=== PATIENT | female | born 1975 | race African-American/Black ===

== ENCOUNTER 2017-09-15 03:40 | Emergency (ER) | payer MEDICAID ==
[~2017-09-15] VITALS: Ht 172.7 cm; Wt 150.0 kg
[2017-09-15] MEDS ORDERED: SODIUM CHLORIDE 0.9% 1,000 ML IV ONE (06:48)
[2017-09-15] MEDS ORDERED: KETOROLAC 30MG/ML VIAL IV STA (06:48)
[2017-09-15 07:15] LABS: HEMATOCRIT. 24.3 % (36.0-48.0); HEMOGLOBIN. 7.4 g/dL (12.0-16.0); MEAN CORPUSCULAR HEMOGLOBIN 18.3 pg (28.0-32.0); MEAN CORPUSCULAR VOLUME 60.4 fL (81.0-99.0); MEAN PLATELET VOLUME 8.4 fl (7.4-10.4); PLATELET 250 x1000/uL (130-400); RED BLOOD CELL COUNT 4.03 mill/uL (4.2-5.4); RED CELL DISTRIBUTION WIDTH 19.6 % (11.6-14.6)
[2017-09-15] MEDS ORDERED: ONDANSETRON HCL 4MG/2ML VIAL IV ONE (07:15)
[2017-09-15 07:22] LABS: PROTHROMBIN TIME 10.3 sec (9.4-11.6)
[2017-09-15 07:27] LABS: CARBON DIOXIDE 23 mEq/L (21-32); CHLORIDE 110 mEq/L (98-107)
[2017-09-15 07:54] LABS: GLUCOSE URINE NEGATIVE (NEGATIVE); KETONES URINE NEGATIVE (NEGATIVE); LEUKOCYTE ESTERASE URINE TRACE (NEGATIVE); NITRITE URINE NEGATIVE (NEGATIVE); OCCULT BLOOD URINE 1+ (NEGATIVE); PROTEIN URINE NEGATIVE (NEGATIVE); SPECIFIC GRAVITY URINE 1.023 (1.005-1.030); UROBILINOGEN URINE 0.2 E.U./dL (0.2-1.0)
[2017-09-15 07:55] LABS: CLARITY URINE CLEAR (CLEAR); COLOR URINE YELLOW (YELLOW)
[2017-09-15 08:19] LABS: PLATELET ESTIMATE NORMAL
[2017-09-15 08:21] VITALS: BP 119/68
[2017-09-15] MEDS ORDERED: MENTHOL/LANOLIN/CALAMINE/ZN OX OINT 71GM TOP STA ×2 (08:53→09:06)
== END 2017-09-15 09:48 | disposition home or self-care (01) ==
LOC: ER 03:40
DX: K43.9 Ventral hernia without obstruction or gangrene (principal); D50.9 Iron deficiency anemia, unspecified; R21 Rash and other nonspecific skin eruption; Z90.81 Acquired absence of spleen
CPT/HCPCS: 36415; 74176; 80053; 81001; 83690; 85025; 85610; 96361; 96374; 96375; 99285; J1885; J2405; J7030; Z7610

== ENCOUNTER 2018-02-16 13:58 | Observation (INO) | payer MEDICAID ==
[~2018-02-16] VITALS: Ht 160 cm; Wt 99.8 kg
== END 2018-02-16 15:10 | disposition home or self-care (01) ==
LOC: L&D 13:58
PROVIDERS: ADMIT Obstetrics & Gynecology; ATTEND Obstetrics & Gynecology
DX: O62.9 Abnormality of forces of labor, unspecified (principal); Z3A.37 37 weeks gestation of pregnancy
CPT/HCPCS: 76856; G0378

== ENCOUNTER 2018-02-16 15:14 | Emergency (ER) | payer MEDICAID ==
[~2018-02-16] VITALS: Ht 160 cm; Wt 100.0 kg
[2018-02-16 16:36] LABS: BASOPHILS % 0.6 % (0.0-2.0); EOSINOPHILS % 0.5 % (0.0-5.0); HEMATOCRIT. 26.9 % (36.0-48.0); HEMOGLOBIN. 8.2 g/dL (12.0-16.0); LYMPHOCYTES % 23.3 % (20.0-50.0); MEAN CORPUSCULAR HEMOGLOBIN 18.2 pg (28.0-32.0); MEAN CORPUSCULAR VOLUME 59.8 fL (81.0-99.0); MEAN PLATELET VOLUME 8.9 fl (7.4-10.4); MONOCYTES % 6.2 % (2.0-8.0); NEUTROPHILS % 69.4 % (40.0-76.0); PLATELET 343 x1000/uL (130-400); RED CELL DISTRIBUTION WIDTH 18.6 % (11.6-14.6)
[2018-02-16 16:40] LABS: HCG SCREEN NEGATIVE
[2018-02-16 16:43] LABS: PROTHROMBIN TIME 10.6 sec (9.4-11.6)
[2018-02-16 16:47] LABS: CHLORIDE 110 mEq/L (98-107)
[2018-02-16] MEDS ORDERED: SODIUM CHLORIDE 0.9% 1,000 ML IV ONE (16:59)
[2018-02-16] MEDS ORDERED: KETOROLAC 30MG/ML VIAL IV ONE (17:00)
[2018-02-16 17:07] LABS: PLATELET ESTIMATE NORMAL
[2018-02-16] MEDS ORDERED: IOHEXOL-300 100 ML BOTTLE ONE (17:28)
[2018-02-16 17:44] LABS: CLARITY URINE CLEAR (CLEAR); COLOR URINE YELLOW (YELLOW); KETONES URINE TRACE (NEGATIVE); LEUKOCYTE ESTERASE URINE NEGATIVE (NEGATIVE); NITRITE URINE NEGATIVE (NEGATIVE); OCCULT BLOOD URINE 2+ (NEGATIVE); PROTEIN URINE NEGATIVE (NEGATIVE); SPECIFIC GRAVITY URINE 1.022 (1.005-1.030); UROBILINOGEN URINE 0.2 E.U./dL (0.2-1.0)
[2018-02-16 17:59] LABS: *AMPHETAMINES SCREEN URINE NEGATIVE (NEGATIVE); *BARBITURATES SCREEN URINE NEGATIVE (NEGATIVE); *BENZODIAZEPINES SCREEN URINE NEGATIVE (NEGATIVE); METHADONE URINE SCREEN NEGATIVE (NEGATIVE); OPIATES URINE SCREEN NEGATIVE (NEGATIVE); PHENCYCLIDINE URINE SCREEN NEGATIVE (NEGATIVE)
[2018-02-16 18:05] LABS: *COCAINE SCREEN URINE PRESUMTIVE POSITIVE (NEGATIVE); CANNABINOID URINE SCREEN PRESUMTIVE POSITIVE (NEGATIVE)
[2018-02-16 21:15] VITALS: BP 115/62
== END 2018-02-16 21:30 | disposition home or self-care (01) ==
LOC: ER 16:34
DX: R10.32 Left lower quadrant pain (principal); R11.2 Nausea with vomiting, unspecified; F14.90 Cocaine use, unspecified, uncomplicated; D64.9 Anemia, unspecified; R31.9 Hematuria, unspecified
CPT/HCPCS: 36415; 74177; 80053; 80305; 81003; 83690; 83880; 84484; 84702; 84703; 85025; 85610; 96361; 96374; 99285; J1885; J7030; Q9967; Z7610

== ENCOUNTER 2018-05-06 17:37 | Emergency (ER) | payer MEDICAID ==
[~2018-05-06] VITALS: Ht 160 cm; Wt 99.0 kg
[2018-05-06] MEDS ORDERED: SODIUM CHLORIDE 0.9% 1,000 ML IV ONE (19:59)
[2018-05-06] MEDS ORDERED: FAMOTIDINE 20MG/2ML VIAL IV STA (19:59)
[2018-05-06] MEDS ORDERED: MORPHINE SULFATE 4 MG/ML CPJ (NOT FOR IM USE) IV STA (19:59)
[2018-05-06] MEDS ORDERED: ONDANSETRON HCL 4MG/2ML VIAL IV STA (19:59)
[2018-05-06] MEDS ORDERED: DIATR MEGLU/DIATRIZOATE SOLN 30ML ONE (20:25)
[2018-05-06 20:28] LABS: BASOPHILS % 1.4 % (0.0-2.0); EOSINOPHILS % 4.4 % (0.0-5.0); LYMPHOCYTES % 30.5 % (20.0-50.0); MEAN CORPUSCULAR HEMOGLOBIN 17.7 pg (28.0-32.0); MEAN CORPUSCULAR VOLUME 58.9 fL (81.0-99.0); MEAN PLATELET VOLUME 8.8 fl (7.4-10.4); NEUTROPHILS % 53.7 % (40.0-76.0); PLATELET 325 x1000/uL (130-400); RED BLOOD CELL COUNT 3.83 mill/uL (4.2-5.4); RED CELL DISTRIBUTION WIDTH 19.8 % (11.6-14.6)
[2018-05-06 20:30] LABS: CHLORIDE 113 mEq/L (98-107)
[2018-05-06 20:31] LABS: HEMOGLOBIN. 6.8 g/dL (12.0-16.0)
[2018-05-06 20:32] LABS: HEMATOCRIT. 22.5 % (36.0-48.0)
[2018-05-06 20:39] LABS: HCG SCREEN NEGATIVE
[2018-05-06 20:54] LABS: PLATELET ESTIMATE NORMAL
[2018-05-07 01:17] VITALS: BP 117/55
== END 2018-05-07 01:19 | disposition home or self-care (01) ==
LOC: ER 17:37
DX: R10.9 Unspecified abdominal pain (principal); F17.200 Nicotine dependence, unspecified, uncomplicated
CPT/HCPCS: 36415; 71045; 74177; 80053; 83605; 83690; 84703; 85025; 96361; 96374; 96375; 99285; 99406; J2270; J2405; J3490; J7030; Z7610; Q9963

== ENCOUNTER 2020-09-30 15:26 | Emergency (ER) | payer MEDICAID ==
[~2020-09-30] VITALS: Ht 160 cm; Wt 95.0 kg
[2020-09-30 15:28] VITALS: BP 127/86
== END 2020-09-30 16:27 | disposition left against medical advice (07) ==
LOC: ER 15:26
DX: Z53.21 Procedure and treatment not carried out due to patient leaving prior to being seen by health care provider (principal)